=== PATIENT | male | born 1960 | race Caucasian/White ===

== ENCOUNTER → 2016-10-31 | Outpatient (CLI) | payer OTHER | LOC: EMS 15:52 | PROVIDERS: ATTEND Emergency Medicine | DX: R07.89 Other chest pain (principal); S60.222A Contusion of left hand, initial encounter; V43.53XA Car driver injured in collision with pick-up truck in traffic accident, initial encounter; Y92.488 Other paved roadways as the place of occurrence of the external cause ==